=== PATIENT | female | born 1940 | race Caucasian/White ===

== ENCOUNTER → 2017-03-16 | Outpatient (CLI) | payer MEDICARE ==
[~2017-03-16] MED LIST: ASPIRIN 81M81 MG/TA2 PO; FISH OIL500 MG; INDERAL 20MG20 MG PO; MINOXIDIL 10; MIRALAX PA17 GM/Dose PO; NORCO 325 MG-7.1 TAB PO; PREDNISONE20 MG PO; PRINIVIL40 MG PO; TOPROL XL100 MG PO; VITAMIN D 1001000 IU; XARELTO10 MG PO; ZOCOR 40MG40 MG PO
== END ==
LOC: COL.RAD 13:41
DX: I67.82 Cerebral ischemia (principal)
CPT/HCPCS: A9585

== ENCOUNTER → 2017-06-25 | Outpatient (CLI) | payer MEDICARE | LOC: MC.RAD 09:28 | DX: N63 Unspecified lump in breast (principal) ==

== ENCOUNTER → 2017-06-29 | Outpatient (CLI) | payer MEDICARE ==
[~2017-06-29] MED LIST changes: +CALCIUM CITRATE1 TA7 PO; +CENTRUM1 TA1 PO; +COLACE 100100 MG/CAP PO; +FISH OIL 1000MG1 CAP PO; +INDERAL40 MG PO; +LIPITOR 40MG TA40 MG PO; +MAG-OX 400400 MG/TAB PO; +MOTRIN 600600 MG/TAB PO; +PERCOCET 325 MG1 TA2 PO; +POTASSIUM IODID PO; +RT SPIRIVA18 MCG IH; +SYNTHROID0.075 MG/T PO; +ZOFRAN ODT4 MG PO
== END ==
LOC: MC.RAD 10:00
DX: N63 Unspecified lump in breast (principal)

== ENCOUNTER 2017-07-23 06:52 | Day surgery (SDC) | payer MEDICARE ==
[2017-07-23] VITALS (9 sets, daily range): BP systolic 113–135; BP diastolic 53–81; PULSE 75–96; TEMP 98.2–98.4
[~2017-07-23] VITALS: Ht 165.1 cm; Wt 61.1 kg
[~2017-07-23 06:52] MED LIST changes: -CALCIUM CITRATE1 TA7 PO; -CENTRUM1 TA1 PO; -COLACE 100100 MG/CAP PO; -FISH OIL 1000MG1 CAP PO; -INDERAL40 MG PO; -LIPITOR 40MG TA40 MG PO; -MAG-OX 400400 MG/TAB PO; -MOTRIN 600600 MG/TAB PO; -PERCOCET 325 MG1 TA2 PO; -POTASSIUM IODID PO; -RT SPIRIVA18 MCG IH; -SYNTHROID0.075 MG/T PO; -ZOFRAN ODT4 MG PO
[2017-07-23] MEDS ORDERED: FISH OIL 1000MG1 CAP PO (09:09)
[2017-07-23] MEDS ORDERED: SYNTHROID0.075 MG/T PO (09:10)
[2017-07-23] MEDS ORDERED: INDERAL40 MG PO (09:11)
[2017-07-23] MEDS ORDERED: POTASSIUM IODID PO (09:12)
[2017-07-23] MEDS ORDERED: LIPITOR 40MG TA40 MG PO (09:14)
[2017-07-23] MEDS ORDERED: MAG-OX 400400 MG/TAB PO (09:16)
[2017-07-23] MEDS ORDERED: CENTRUM1 TA1 PO (09:16)
[2017-07-23] MEDS ORDERED: CALCIUM CITRATE1 TA7 PO (09:17)
[2017-07-23] MEDS ORDERED: RT SPIRIVA18 MCG IH (09:19)
[2017-07-23] MEDS ORDERED: MOTRIN 600600 MG/TAB PO (15:50)
[2017-07-23] MEDS ORDERED: ZOFRAN ODT4 MG PO (15:51)
[2017-07-23] MEDS ORDERED: COLACE 100100 MG/CAP PO (15:51)
[2017-07-23] MEDS ORDERED: PERCOCET 325 MG1 TA2 PO (15:51)
[2017-07-24 01:46] VITALS: BP 108/55; PULSE 63; TEMP 97.7
[2017-07-24 05:47] VITALS: BP 96/55; PULSE 77; TEMP 98
[2017-07-24 10:00] VITALS: BP 105/50; PULSE 77; TEMP 97.8
== END 2017-07-24 11:25 | disposition home or self-care (01) ==
LOC: SDCO 06:52 → SURG 16:50 → SDCO 07-24 11:25
DX: D05.12 Intraductal carcinoma in situ of left breast (principal); I10 Essential (primary) hypertension; E78.2 Mixed hyperlipidemia; J43.2 Centrilobular emphysema; I27.2 Other secondary pulmonary hypertension; Z80.42 Family history of malignant neoplasm of prostate; F17.210 Nicotine dependence, cigarettes, uncomplicated
CPT/HCPCS: OP; A9541; C1789; J0690; J1100; J1650; J1885; J2250; J2405; J2704; J2795; J3010; J7120